=== PATIENT | male | born 1975 | race Caucasian/White ===

== ENCOUNTER 2024-11-23 06:34 | Inpatient (IN) | payer OTHER ==
[~2024-11-23] VITALS: Ht 167.6 cm; Wt 126.6 kg
[2024-11-23] MEDS: NITROGLYCERIN OINT 1GM/INCH UDPKT TD ONE (07:39)
[2024-11-23] MEDS: MORPHINE SULFATE 4 MG/ML INJ (FOR IV/IM USE) IV ONE (07:39)
[2024-11-23 07:55] LABS: BASOPHILS % 0.9 % (0.0-2.0); HEMOGLOBIN. 15.8 g/dL (14.0-18.0); LYMPHOCYTES % 14.2 % (20.0-50.0); MEAN CORPUSCULAR HEMOGLOBIN 30.7 pg (28.0-32.0); MEAN CORPUSCULAR HGB CONC 34.3 g/dL (31.0-37.0); MEAN CORPUSCULAR VOLUME 89.5 fL (80.0-94.0); MEAN PLATELET VOLUME 10.1 fl (7.4-10.4); NEUTROPHILS % 76.9 % (40.0-76.0); PLATELET 66 x1000/uL (130-400); RED BLOOD CELL COUNT 5.14 mill/uL (4.7-6.1); RED CELL DISTRIBUTION WIDTH 13.4 % (11.6-14.6); WHITE BLOOD COUNT 4.1 x1000/uL (4.5-11.0)
[2024-11-23 08:00] LABS: CARBON DIOXIDE 27 mEq/L (21-32); CHLORIDE 107 mEq/L (98-107); POTASSIUM 3.7 mEq/L (3.5-5.1); SODIUM 141 mEq/L (136-145)
[2024-11-23 08:01] LABS: CALCIUM 9.1 mg/dL (8.7-10.4)
[2024-11-23 08:05] LABS: CREATININE 1.1 mg/dL (0.6-1.3)
[2024-11-23 08:06] LABS: GLUCOSE 105 mg/dL (70-105); UREA NITROGEN BLOOD 19 mg/dL (9-23)
[2024-11-23 08:07] LABS: TROPONIN I HIGH SENSITIVITY 9 ng/L (3.0-53)
[2024-11-23 08:11] LABS: PROTHROMBIN TIME 43.6 sec (9.6-11.0)
[2024-11-23 08:26] LABS: INR 4.7
[2024-11-23] MEDS: HYDRALAZINE 20MG/ML VIAL IV ONE (08:52)
[2024-11-23 10:06] LABS: TROPONIN I HIGH SENSITIVITY 10 ng/L (3.0-53)
[2024-11-23 13:00] VITALS: BP 163/106; PULSE 92; RESP 16; TEMP 36.9; TEMP 37; O2SAT 97
[2024-11-23] MEDS ORDERED: ACETAMINOPHEN 325MG TABLET PO PRN (13:30)
[2024-11-23] MEDS ORDERED: ONDANSETRON HCL 4MG/2ML INJ IV PRN (13:30)
[2024-11-23] MEDS ORDERED: DOCUSATE SODIUM 100MG CAPSULE PO PRN (13:30)
[2024-11-23] MEDS: AMLODIPINE 10MG TABLET PO SCH (13:50)
[2024-11-23] MEDS: ACETAMINOPHEN 325MG TABLET PO PRN (13:51)
[2024-11-23 14:00] VITALS: BP 159/98; PULSE 90; RESP 17; TEMP 36.9; O2SAT 97
[2024-11-23] MEDS ORDERED: METOPROLOL TARTRATE 5MG/5ML VIAL IV PRN (14:00)
[2024-11-23] MEDS ORDERED: REGADENOSON 0.4 MG/5 ML IV SCH (14:00)
[2024-11-23 16:00] VITALS: BP 134/98; PULSE 102; RESP 16; TEMP 36.6; O2SAT 97
[2024-11-23 18:09] LABS: TROPONIN I HIGH SENSITIVITY 28 ng/L (3.0-53)
[2024-11-23 18:31] LABS: HEPATITIS B SURFACE ANTIGEN NEGATIVE (Negative)
[2024-11-23 18:48] LABS: HEPATITIS C AB NON REACTIVE (Neg) (Negative)
[2024-11-23 19:48] VITALS: BP 126/84; PULSE 88; RESP 14; TEMP 36.9; O2SAT 96
[2024-11-23] MEDS ORDERED: ENOXAPARIN 40MG/0.4ML SYR SUBCUT SCH (21:00)
[2024-11-24 00:07] VITALS: BP 152/99; PULSE 84; RESP 21; TEMP 37; O2SAT 97
[2024-11-24 00:21] LABS: TROPONIN I HIGH SENSITIVITY 20 ng/L (3.0-53)
[2024-11-24 03:06] LABS: *AMPHETAMINES SCREEN URINE NEGATIVE (NEGATIVE); *BARBITURATES SCREEN URINE NEGATIVE (NEGATIVE); *BENZODIAZEPINES SCREEN URINE NEGATIVE (NEGATIVE); *COCAINE SCREEN URINE NEGATIVE (NEGATIVE); CANNABINOID URINE SCREEN NEGATIVE (NEGATIVE); ECSTASY MDMA SCREEN URINE NEGATIVE (NEGATIVE); METHADONE URINE SCREEN NEGATIVE (NEGATIVE); OPIATES URINE SCREEN PRESUMPTIVE POSITIVE (NEGATIVE); PHENCYCLIDINE URINE SCREEN NEGATIVE (NEGATIVE)
[2024-11-24 04:19] VITALS: BP 156/89; PULSE 84; RESP 18; TEMP 37.1; O2SAT 95
[2024-11-24 07:12] LABS: HEMATOCRIT 45.5 % (42.0-52.0); HEMOGLOBIN 15.6 g/dL (14.0-18.0); MEAN CORPUSCULAR HEMOGLOBIN 30.2 pg (28.0-32.0); MEAN CORPUSCULAR HGB CONC 34.2 g/dL (31.0-37.0); MEAN CORPUSCULAR VOLUME 88.4 fL (80.0-94.0); PLATELET 77 x1000/uL (130-400); RED BLOOD CELL COUNT 5.15 mill/uL (4.7-6.1); RED CELL DISTRIBUTION WIDTH 13.4 % (11.6-14.6)
[2024-11-24 07:20] LABS: INR 3.7; PROTHROMBIN TIME 34.9 sec (9.6-11.0)
[2024-11-24 07:21] LABS: CARBON DIOXIDE 25 mEq/L (21-32); CHLORIDE 105 mEq/L (98-107); POTASSIUM 3.8 mEq/L (3.5-5.1); SODIUM 142 mEq/L (136-145)
[2024-11-24 07:22] LABS: CALCIUM 9.2 mg/dL (8.7-10.4)
[2024-11-24 07:27] LABS: CREATININE 0.9 mg/dL (0.6-1.3); GLUCOSE 106 mg/dL (70-105); UREA NITROGEN BLOOD 13 mg/dL (9-23)
[2024-11-24 07:28] LABS: ALBUMIN 4.1 g/dL (3.2-4.8)
[2024-11-24 07:29] LABS: ALANINE AMINOTRANSFERASE 11 IU/L (10-49); ASPARTATE AMINOTRANSFERASE 22 IU/L (<34); BILIRUBIN TOTAL 2.6 mg/dL (0.1-1.0)
[2024-11-24 08:37] VITALS: BP 156/109; PULSE 74; RESP 18; TEMP 36.7; O2SAT 98
[2024-11-24] MEDS: ASPIRIN 81MG TABLET PO SCH (09:07)
[2024-11-24] MEDS ORDERED: REGADENOSON 0.4 MG/5 ML IV ONE (09:46)
[2024-11-24 12:00] VITALS: BP 172/88; PULSE 77; RESP 21; TEMP 37; O2SAT 97
[2024-11-24 16:00] VITALS: BP 179/89; PULSE 71; RESP 19; TEMP 36.8; O2SAT 95
[2024-11-24] MEDS: LOSARTAN 50 MG TABLET PO SCH (16:50)
[2024-11-24 20:00] VITALS: BP 144/95; PULSE 65; RESP 14; TEMP 36.7; O2SAT 96
[2024-11-25] VITALS: PULSE 73; RESP 19; O2SAT 95
[2024-11-25 01:34] VITALS: BP 120/53; PULSE 63; RESP 15; TEMP 36.6; O2SAT 100
[2024-11-25 04:00] VITALS: BP 128/66; PULSE 69; RESP 16; O2SAT 98
[2024-11-25 07:02] LABS: INR 2.7; PROTHROMBIN TIME 26.7 sec (9.6-11.0)
[2024-11-25 08:00] VITALS: BP 152/87; PULSE 76; RESP 15; TEMP 36.8; O2SAT 98
[2024-11-25 09:19] LABS: HEMATOCRIT 45.5 % (42.0-52.0); HEMOGLOBIN 15.4 g/dL (14.0-18.0); MEAN CORPUSCULAR HEMOGLOBIN 30.1 pg (28.0-32.0); MEAN CORPUSCULAR HGB CONC 33.8 g/dL (31.0-37.0); MEAN CORPUSCULAR VOLUME 88.9 fL (80.0-94.0); PLATELET 77 x1000/uL (130-400); RED BLOOD CELL COUNT 5.11 mill/uL (4.7-6.1); RED CELL DISTRIBUTION WIDTH 13.2 % (11.6-14.6); WHITE BLOOD COUNT 4.7 x1000/uL (4.5-11.0)
[2024-11-25 09:25] LABS: CHLORIDE 105 mEq/L (98-107); SODIUM 140 mEq/L (136-145)
[2024-11-25 09:26] LABS: CALCIUM 9.2 mg/dL (8.7-10.4); CARBON DIOXIDE 25 mEq/L (21-32)
[2024-11-25 09:31] LABS: GLUCOSE 101 mg/dL (70-105); UREA NITROGEN BLOOD 16 mg/dL (9-23)
[2024-11-25] MEDS ORDERED: NALOXONE HCL 0.4MG/ML VIAL IV PRN (10:30)
[2024-11-25] MEDS: TRAMADOL 50MG TABLET PO PRN (10:44)
[2024-11-25 12:00] VITALS: BP 153/90; PULSE 66; RESP 21; TEMP 36.6; O2SAT 97
[2024-11-25 13:45] VITALS: BP 153/90; PULSE 90; TEMP 97.9; O2SAT 98
== END 2024-11-25 14:20 | disposition home or self-care (01) | DRG 243 ==
LOC: ER 06:34 → 3WST 11:53 → EDBEDREQ 11:54 → EDBEDREQTM 11:54 → ENRESERV 12:41 → 3WST 11-24 20:47
PROVIDERS: ADMIT Internal Medicine; ATTEND Internal Medicine
DX: K21.9 Gastro-esophageal reflux disease without esophagitis (principal); D68.9 Coagulation defect, unspecified; D69.6 Thrombocytopenia, unspecified; R07.89 Other chest pain; I25.10 Atherosclerotic heart disease of native coronary artery without angina pectoris; I16.0 Hypertensive urgency; Z59.00 Homelessness unspecified; Z79.01 Long term (current) use of anticoagulants; Z85.841 Personal history of malignant neoplasm of brain; Z95.1 Presence of aortocoronary bypass graft
CPT/HCPCS: 36415; 71045; 78452; 80048; 80053; 80305; 83880; 84484; 85025; 85027; 86705; 87340; 93005; 93306; 99291; A9500; J0360; J2270; J2785